=== PATIENT | female | born 1985 | race Caucasian/White ===

== ENCOUNTER 2022-10-24 23:09 | Emergency (ER) | payer OTHER ==
[~2022-10-24] VITALS: Ht 152.4 cm; Wt 50.0 kg
[2022-10-25 00:40] LABS: Basophils # (auto) 0 10 ^3/uL (0-0.2); Basophils % (auto) 0.3 % (0.0-2.0); Eosinophils # (auto) 0.1 10 ^3/uL (0-0.8); Eosinophils % (auto) 0.7 % (0.0-7.0); Hematocrit 39.8 % (36.0-46.0); Hemoglobin 13.9 g/dL (12.2-16.2); Lymphocytes # (auto) 2.1 10 ^3/uL (0.4-5.4); Lymphocytes % (auto) 20.8 % (10.0-50.0); Mean Corpuscular Hemoglobin 32.2 pg (28.0-32.0); Monocytes # (auto) 0.6 10 ^3/uL (0-1.3); Monocytes % (auto) 6.2 % (0.0-12.0); Neutrophils # (auto) 7.4 10 ^3/uL (1.6-8.6); Red Blood Cells 4.32 10^6/uL (4.0-5.20); Red Cell Distribution Width 13.3 % (11.8-14.3); White Blood Cell 10.3 10^3/uL (4.4-10.8)
[2022-10-25 00:55] LABS: INR 1.04 (0.9-1.15)
[2022-10-25] MEDS ORDERED: MORPHINE SULFATE INJ 2 MG/ml SYRG IV ONE (01:00)
[2022-10-25] MEDS ORDERED: ONDANSETRON HCL 4 MG/2 ML VIAL IV ONE (01:00)
[2022-10-25 01:03] LABS: Calcium 8.6 mg/dL (8.5-10.1); Potassium 3.4 mmol/L (3.5-5.1)
[2022-10-25 01:11] LABS: BUN/Creatinine Ratio 30.3 (10.0-20.0); Total Protein 7.8 g/dL (6.4-8.2)
[2022-10-25] MEDS ORDERED: LIDOCAINE W/ EPINEPHRINE 1% 20ML VIAL ID ONE (01:15)
[2022-10-25] MEDS ORDERED: levETIRAcetam 500 MG/5ML INJ IV ONE (01:24)
[2022-10-25] MEDS ORDERED: TETANUS-DIPTH-ACEL PERTUSSIS 0.5ML SYR Tdap IM ONE (02:00)
[2022-10-25] MEDS ORDERED: SODIUM CHLORIDE 0.9% 2,000 ML IV ONE (02:00)
[2022-10-25 02:29] VITALS: BP 125/82
[2022-10-25] MEDS ORDERED: cefTRIAXone 1GM/50ML D5W 50 ML IV ONE (02:30)
== END 2022-10-25 02:40 | disposition short-term general hospital (02) ==
LOC: EDSEX 23:09 → ER 23:09 → EDBD 23:09 → ER 10-25 02:40
DX: S06.6X9A Traumatic subarachnoid hemorrhage with loss of consciousness of unspecified duration, initial encounter (principal); S06.5X9A Traumatic subdural hemorrhage with loss of consciousness of unspecified duration, initial encounter; S01.01XA Laceration without foreign body of scalp, initial encounter; R10.2 Pelvic and perineal pain; M54.2 Cervicalgia; M25.522 Pain in left elbow; M25.521 Pain in right elbow; Z23 Encounter for immunization; V43.52XA Car driver injured in collision with other type car in traffic accident, initial encounter; Y93.89 Activity, other specified; Y92.488 Other paved roadways as the place of occurrence of the external cause; Y99.8 Other external cause status
CPT/HCPCS: 13121; 13122; 36415; 70450; 71045; 72125; 73060; 80053; 83690; 84484; 84702; 85025; 85610; 86850; 86900; 86901; 90471; 90715; 96365; 96375; 99291; J1953; J2270; J2405; J7030; J7060

== ENCOUNTER 2022-11-05 07:47 | Emergency (ER) | payer OTHER ==
[~2022-11-05] VITALS: Ht 152.4 cm; Wt 50.0 kg
[2022-11-05 08:19] VITALS: BP 107/71
[2022-11-05] MEDS ORDERED: HYDROcodone-ACET 5/325MG TAB PO ONE (08:45)
== END 2022-11-05 09:38 | disposition home or self-care (01) ==
LOC: ER 07:47
DX: S01.01XD Laceration without foreign body of scalp, subsequent encounter (principal); V89.2XXD Person injured in unspecified motor-vehicle accident, traffic, subsequent encounter

== ENCOUNTER 2023-07-16 21:40 | Emergency (ER) | payer MEDICAID, OTHER ==
[~2023-07-16] VITALS: Ht 182.9 cm; Wt 56.1 kg
[2023-07-16 22:10] VITALS: BP 112/61; PULSE 78; RESP 16; O2SAT 97
== END 2023-07-17 04:00 | disposition left against medical advice (07) ==
LOC: ER 21:40
DX: H92.02 Otalgia, left ear (principal); Z53.21 Procedure and treatment not carried out due to patient leaving prior to being seen by health care provider

== ENCOUNTER 2023-09-06 07:25 | Emergency (ER) | payer MEDICAID ==
[~2023-09-06] VITALS: Ht 152.4 cm; Wt 60.0 kg
[~2023-09-06 07:25] MED LIST: AMOX875T3 PO; METH4PAK PO
[2023-09-06 07:51] VITALS: BP 121/76; PULSE 79; RESP 14; TEMP 98.3; O2SAT 98
[2023-09-06] MEDS ORDERED: CIPRSUS OT (07:58)
== END 2023-09-06 08:02 | disposition home or self-care (01) ==
LOC: ER 07:25
DX: H60.92 Unspecified otitis externa, left ear (principal)